=== PATIENT | female | born 1935 | race Caucasian/White ===

== ENCOUNTER 2018-02-11 10:49 | Inpatient (IN) | payer MEDICARE, OTHER ==
[2018-02-11 11:58] LABS: #Basophils 0.1 thou/uL (0.0-0.2); #Eosinphils 0.4 thou/uL (0.0-0.7); #Lymphocytes 1.6 thou/uL (1.20-3.40); #Monocytes 0.8 thou/uL (0.11-0.59); #Neutrophils 5.8 thou/uL (1.40-6.50); %Basophils 1.2 % (0.0-1.0); %Eosinophils 4.2 % (0.0-10.0); %Lymphocytes 18.7 % (21.0-51.0); %Monocytes 8.7 % (0.0-10.0); %Neutrophils 67.1 % (42.0-75.0); Hemoglobin 9.2 g/dL (12.0-16.0); Mean Corpuscular HGB CONC 30.6 g/dL (32.0-36.0); Mean Corpuscular Hemoglobin 29.3 pg (27.0-31.0); Mean Corpuscular Volume 95.8 fl (81.0-99.0); Mean Platelet Volume 8.2 fL (7.4-10.4); Platelet Count 291 thou/uL (130-400); RBC Distribution Width 18.1 % (11.5-14.5); Red Blood Cell (RBC) Count 3.14 mill/uL (4.20-5.40); White Blood Cell (WBC) Count 8.7 thou/uL (4.8-10.8)
[2018-02-11 12:20] LABS: ALT (SGPT) 12 U/L (8-55); AST (SGOT) 15 U/L (5-34); Albumin 2.5 g/dL (3.4-4.8); Alkaline Phosphatase 160 U/L (40-150); Anion Gap 17 mmol/L (10-20); BUN (Urea Nitrogen) 44 mg/dL (9.8-20.1); Bilirubin, Total 0.4 mg/dL (0.2-1.2); Calc. Creatinine Clearance 0 mL/min (70-130); Calcium 7.7 mg/dL (7.8-10.44); Carbon Dioxide 14 mmol/L (23-31); Chloride 110 mmol/L (98-107); Estimated GFR-MDRD 10; Globulin 2.8 g/dL (2.4-3.5); Glucose 81 mg/dL (83-110); Potassium 5.5 mmol/L (3.5-5.1); Protein, Total 5.3 g/dL (6.0-8.3); Sodium 135 mmol/L (136-145)
[2018-02-11 12:29] LABS: Bilirubin Negative (Negative); Blood, Urine Moderate (Negative); Clarity TURBID (Clear); Glucose, Urine (Dipstick) Negative (Negative); Leukocyte Large (Negative); Nitrite Negative (Negative); Protein, Urine (Dipstick) Negative (Neg-Trace); Specific Gravity, Urine 1.015 (1.002-1.036); Urobilinogen 0.2 mg/dL (0.2-1.0)
[2018-02-11 12:35] LABS: Bacteria/HPF 4+ HPF (None Seen); Hyaline Casts/LPF 0-3 HYALINE CAST LPF (0-3 Hyaline); Pathc Cast-AUWi Flag 0.81 (0-2.49); RBC/HPF 0-3 HPF (0-3); Squamous Epithelial 0-3 HPF (0-3)
[2018-02-11] MEDS ORDERED: Acetaminophen 325 MG TAB PO PRN (13:17)
[2018-02-11] MEDS ORDERED: Ondansetron HCl/PF 4 MG/2 ML Vial IVP PRN (13:17)
[2018-02-11] MEDS ORDERED: Zolpidem Tartrate 5 MG TAB PO PRN (13:17)
--- NOTE | 2018-02-11 13:44 | HP ---
PRIMARY CARE PROVIDER: Dr. Muro at [facility]. She is followed at the skilled nursing in [place] by Dr. Sally Hanks. Her political consultant is Dr. Allen. HISTORY OF PRESENT ILLNESS: She was sent from the [facility] by Dr. [facility] after he wa s informed of an elevated potassium level. She states yesterday she got dizzy and passed out. She s tates she has been recently hospitalized at [facility] after having a fall and having apparently a disk problem which caused a profound weakness in the right leg. No pain. She has been in rehab w ith them trying to teach her how to use her right leg since that time. PAST MEDICAL HISTORY: Pertinent for chronic kidney disease, chronic low blood pressure, hypoglycemia , hypothyroidism. She states she takes 25 pills a day, but only 4 of them are prescription and the o nly one that she knows what it is, is a thyroid medicine, but she does not know the dose. I have spo luly with Dr. Allen, her political consultant, who knows her medicine list and will bring it. ALLERGIES: She is allergic to CODEINE. PAST SURGICAL HISTORY: She had a hysterectomy in the past. She had an experimental bariatric surger y 45 years ago that left her with only 18 inches of small bowel. She states the surgery has since be en band. FAMILY HISTORY: No inheritable diseases in mother, father or siblings. SOCIAL HISTORY: 63 years. CODE STATUS: Full code status. States do everything for 3 days and "if at the end of 3 days if she can be fixed turn it off", her words. Does not smoke or drink alcohol. REVIEW OF SYSTEMS: GENERAL: No fever or chills. She states she is up 30 pounds of water weight in the past month. EYES: She has wears glasses, states she has poor vision, no double vision, flashing lights. ENT: No ear pain or drainage. No nasal bleeding. No trouble swallowing. CARDIAC: No chest pain, orthopnea or paroxysmal nocturnal dyspnea. RESPIRATORY: No cough, wheezing or asthma. GASTROINTESTINAL: She has had diarrhea since her bariatric surgery 45 years ago. No blood in her st ools, no nausea, vomiting or abdominal pain. GENITOURINARY: No hematuria, dysuria. MUSCULOSKELETAL: Profound swelling in her legs, worse over the past month. NEUROLOGIC: No strokes, seizures or focal weakness. PSYCHIATRIC: No anxiety, depression. SKIN: Easy bruising. HEME/LYMPH: No tender or swollen lymph nodes in axilla, inguinal or cervical area. PHYSICAL EXAMINATION: VITAL SIGNS: Blood pressure in the emergency room 125/60 and 100/52, pulse 90, respirations 18, temp erature 98, pulse ox 99 on room air. HEENT: Reveal pupils equal, round, and reactive to light. Extraocular movements are intact. Sclera e white. Tympanic membranes clear. Nose is clear. Oral mucous membranes are wet. She is edentulou s. NECK: No jugular venous distention, adenopathy or thyromegaly. CHEST: Clear to auscultation and percussion. HEART: Regular rate and rhythm. First and second heart sounds are clear. There are no appreciated murmurs or gallops. ABDOMEN: The abdomen is soft, bowel sounds are normal. There is no hepatosplenomegaly, no masses, n o rebound. EXTREMITIES: Reveal 3+ edema with no cyanosis or clubbing. PULSES: Carotid, radial, and femoral pulses intact. Pedal pulses obscured by edema. SKIN: Marked erythematous areas. No true ecchymoses and not a true rash. She states they occur wit h any kind of trauma. They are present from neck to toes. HEME/LYMPHATIC SURVEY: No tender or swollen lymph nodes in axilla, inguinal or cervical area. NEUROLOGICAL: Cranial nerves II-XII are intact. Biceps reflexes and strength normal, strength kimmie l in her left lower leg. She has no sensation in the right leg and has maybe 10-15% strength in that leg. LABORATORY: Urinalysis, white blood cells 50 to too many to count, positive leukocyte esterase. Latonya geraldo: Sodium 135, potassium 5.5, chloride 110, CO2 14, BUN 44, creatinine 4.08, glucose 81, calciu m 7.7, albumin 2.5, alkaline phosphatase 160, ALT and AST normal. CBC: Hemoglobin 9.2, white count 8.7, platelet count 291,000. ADMITTING DIAGNOSES: 1. Chronic kidney disease stage 3 with a creatinine of 4 and a BUN of 40 range. I have checked in Luis burnham her creatinine was 5. 2. Hyperkalemia, mild, in a patient who is being given supplemental potassium. 3. Mild metabolic acidosis. 4. Syncope. 5. Hypertension. 6. Anemia of chronic disease. PLAN: 1. Hold Potassium. 2. Lasix [address] 3[address] Allen has been consulted and will see the patient today. 4. EKG. 5. Chest x-ray. 6. Repeat basic metabolic profile in the morning. 7. Urine culture has been sent. The patient will be started on Omnicef 300 mg p.o. b.i.d.
[2018-02-11] MEDS ORDERED: Furosemide 40 MG/4 ML VIAL SLOW IVP SCH (14:00)
--- NOTE | 2018-02-11 15:11 | PDOC.EVN ---
Event Note - Event Note Event Note: weak heart, arrthymia. on 100 mg amiodarone. start digoxin, echo
[2018-02-11] MEDS ORDERED: Digoxin 0.5 MG/2 ML AMP SLOW IVP SCH ×3 (15:15→19:00)
--- NOTE | 2018-02-11 15:46 | ULT ---
BILATERAL RENAL SONOGRAM: Date: 02/11/18 HISTORY: Renal insufficiency. FINDINGS: Right kidney is 8.5 cm in length and shows thinning of the cortex. Exophytic cysts measure up to 2.4 cm greatest diameter. Left kidney is 10.2 cm and also shows thinning of the cortex and multiple cysts, measuring up to 3.4 cm. No hydronephrosis. Urinary bladder is incompletely distended. IMPRESSION: 1. No evidence of urinary tract obstruction. Bilateral renal cysts. 2. Chronic bilateral renal atrophy. POS: [facility]
--- NOTE | 2018-02-11 15:55 | ULT ---
BILATERAL CAROTID DUPLEX ULTRASOUND: DATE: 02/11/18 HISTORY: Syncope. TECHNIQUE: Maki scale ultrasound with color flow and spectral Doppler imaging of the extracranial carotid artery systems performed bilaterally. FINDINGS: No significant plaque formation or intimal wall thickening is seen on either side. The peak systolic velocity in the right ICA measures 103 cm/second with an end-diastolic velocity of 37 cm/second and a systolic ratio of 1.69. The peak systolic velocity in the left ICA measures 91 cm/second with an end-diastolic velocity of 29 cm/second and a systolic ratio of 1.40. Flow in both vertebral arteries remains antegrade. IMPRESSION: No evidence of hemodynamically significant stenosis. POS: [facility]
[2018-02-11] MEDS ORDERED: CEFAZOLIN/Water 2 GM/20 ML SYRINGE SLOW IVP SCH (16:00)
[2018-02-11 16:10] LABS: Free T4 (Free Thyroxine) 0.88 ng/dL (0.70-1.48)
--- NOTE | 2018-02-11 17:00 | OP ---
PREOPERATIVE DIAGNOSIS: Poor IV access, end-stage renal disease, morbid obesity. POSTOPERATIVE DIAGNOSIS: Poor IV access, end-stage renal disease, morbid obesity. PROCEDURE PERFORMED: Right femoral vein triple lumen catheter. SURGEON: Dr. Lowe. ANESTHESIA: 1% Xylocaine. DESCRIPTION OF PROCEDURE: At the patient's bedside in room, right groin was prepared with ChloraPrep , draped in routine fashion. Local anesthetic infiltrated into skin and subcutaneous tissue. Trocar catheter cannulated the femoral vein with some difficulty and J-wire threaded. Trocar catheter rosaura gerald. Seldinger technique used to place a triple lumen catheter placing the Biopatch, securing the ca theter with 3-0 silk and each port aspirated blood and flushed with saline solution. Op-Site dressin g applied. Right arm IV removed.
--- NOTE | 2018-02-11 17:02 | RAD ---
CHEST ONE VIEW: 02/11/18 HISTORY: Hyperkalemia. Dyspnea. FINDINGS: Cardiac silhouette is magnified. Pulmonary vasculature is upper limits of normal. Mediastinum is midl ine with aortic calcification. There is blunting of the left lateral costophrenic angle. Old right ri b fractures are apparent. No evidence of pneumothorax. IMPRESSION: 1. Mild pulmonary vascular congestion. Small left pleural effusion. 2. Atherosclerosis. POS: [facility]
--- NOTE | 2018-02-11 17:41 | CON ---
DATE OF CONSULTATION: 02/11/2018 HISTORY OF PRESENT ILLNESS: Mary Damon is an 82-year-old female with chronic kidney disease. She ames s been seen by Dr. Allen who has sent her to the hospital for medical evaluation and to initiate dialy sis. He has asked me to see her regarding placement of hemodialysis catheter. Her GFR is 10, creati nine 4, BUN 44, potassium 5.5. Patient states that she was at [facility] for pain in her hip. She had edema. She had difficult IV access. They tried a left IJ catheter. It sounds and was unsuccessful. They tried multiple IV sticks throughout in both arms. She ended up having a PICC line in her left arm. The patient reports today to the emergency room and has had mul tiple IV access in her antecubital area above and below, right more than left. She has an IV in her midforearm. I have removed that immediately. The patient has fragile skin. She has had progressive renal failure probably secondary to intestinal bypass 45 years ago. ALLERGIES: CODEINE. TOBACCO: None. ALCOHOL: None. MEDICATIONS AT HOME: Furosemide 20 mg a day, ferrous sulfate 325 daily, vitamin B12 daily, potassium chloride 20 daily, vitamin D3 daily, Zyrtec daily, calcium, antacid 1000 mg b.i.d., amiodarone 100 m g daily, acetaminophen as needed, aspirin 81 mg a day, thiamine 100 mg daily, midodrine 2.5 mg b.i.d. , omeprazole 40 mg daily, magnesium oxide 400 mg daily, Florinef t.i.d. one tab, levothyroxine 125 mc g a day, gabapentin 300 mg a day, loperamide 200 mg p.o. q.i.d. p.r.n., albuterol sulfate p.r.n., sod ium bicarbonate 650 p.o. b.i.d. PAST SURGICAL HISTORY: Laparotomy 45 years ago with intestinal bypass and cholecystectomy. She had a 150-pound weight loss as a result of that. Transvaginal hysterectomy. SOCIAL HISTORY: Patient lives in a penitentiary in [place]. Her family is present. Family tells me that previously at [facility], she stated that she wanted to be in a D NR except wanted to be kept alive for 7 days. Today, she has told Dr. Bartlett she wants to be kept ali ve for 3 days. Previously, the family has discussed with her and she agreed to DNR in the past. PAST MEDICAL HISTORY: Chronic kidney disease, history of intestinal bypass with resultant chronic ki dney disease, intestinal bypass. Patient historically has long-term problems with chronic kidney dis ease, end-stage renal disease, chronic liver failure and hypothyroidism. PHYSICAL EXAMINATION: VITAL SIGNS: 102 kilograms, 125/60, 94, 18, 98 degrees. HEAD, EARS, EYES, NOSE, AND THROAT: Unremarkable. LUNGS: Clear to auscultation. CARDIAC: Regular rate and rhythm without murmur or gallop. ABDOMEN: Soft, obese. Scar per above surgical history of intestinal bypass and cholecystectomy. EXTREMITIES: Unremarkable. She has palpable radial pulses in right mid forearm IV. Ecchymosis abov e antecubital areas, right greater than left. LABORATORY DATA: As noted above, bilirubin 0.4. AST and ALT are 15 and 12, alkaline phosphatase 160 . Hemoglobin 9.2, white count 8.7. ASSESSMENT AND PLAN: 1. Chronic renal failure, probably as a result of her past intestinal bypass. These intestinal bypa ss patients performed to this degree 45 years ago have problems with chronic kidney disease, end-stag e renal disease and liver failure. The patient's liver function test appeared to be normal. Dr. Renzo vincent has asked me to place hemodialysis catheter and an arm fistula. We will obtain ultrasound vein map ping in both arms to protect her arm veins. She has already had left arm PICC line at [facility] [place]. I told them to avoid all IVs antecubital area and avoid PICC lines an d avoid . We will plan Friday left or right arm primary fistula, pinning vein mapping and hemod ialysis catheter. We will place a central line to protect her veins and provide IV access and blood draws. 2. History of intestinal bypass. 3. History of cholecystectomy. 4. History transvaginal hysterectomy. 5. Obesity. 5. Nonambulatory for 6 months.
--- NOTE | 2018-02-11 17:43 | CON ---
DATE OF CONSULTATION: 02/11/2018 NEPHROLOGY CONSULTATION REASON FOR CONSULTATION: Hyperkalemia. HISTORY OF PRESENT ILLNESS: This is a very pleasant 82-year-old female with a history of CKD stage 5 who presented to the hospital after she was noted to have hyperkalemia. PAST MEDICAL HISTORY: Hypertension, hyperlipidemia, congestive heart failure with EF of 50%, anemia, arthritis, cellulitis of the left lower limb, hypothyroidism, neuropathy, osteoarthritis, paroxysmal atrial fibrillation, restless legs syndrome, short gut syndrome, UTI, history of cholecystectomy, eye surgery, hysterectomy, intestinal bypass, HD catheter. HOME MEDICATIONS: List reviewed, which included potassium chloride, amiodarone 100 mg daily, aspirin 81 mg daily, vitamin D, vitamin B12, Lasix 20 mg daily, gabapentin 300 mg daily, isosorbide mononitrate 300 mg daily, Synthroid 125 mcg , metoprolol tartrate 25 mg b.i.d., Prilosec 20 mg daily and thiamine. ALLERGIES: Reviewed. AMITRIPTYLINE, AMOXICILLIN, KEFLEX, MORPHINE, and TRAMADOL. FAMILY HISTORY: Negative for ESRD. SOCIAL HISTORY: No alcohol or drug use. REVIEW OF SYSTEMS: A 10 point review of systems was performed and was negative except for positives noted above. GENERAL: Weakness- HEAD: Headache- NECK: No swelling or lumps. NOSE: No epistaxis or discharge. EYES: No diplopia or pain. RESPIRATORY: Dyspnea- CARDIOVASCULAR: Chest pain- GASTROINTESTINAL: Nausea- /HOTEL OPERATIONS MANAGER: Hematuria- MUSCULOSKELETAL: No joint pain. NEUROPSYCHIATIC SYSTEMS: No suicidal ideation. No ideation. SKIN: Denies any rash or ulcer. CONSTITUTIONAL: No fever or chills. PHYSICAL EXAMINATION: GENERAL: Patient is awake, alert. VITAL SIGNS: Afebrile breathing at 16, blood pressure 137/81. HEAD: Headache- NECK: No swelling or lumps. NOSE: No epistaxis or discharge. EYES: No diplopia or pain. RESPIRATORY: Dyspnea- CARDIOVASCULAR: Chest pain- GASTROINTESTINAL: Nausea- /HOTEL OPERATIONS MANAGER: Hematuria- MUSCULOSKELETAL: No joint pain. NEUROPSYCHIATIC SYSTEMS: No suicidal ideation. No ideation. SKIN: Denies any rash or ulcer. CONSTITUTIONAL: No fever or chills. EXTREMITIES: Lower extremities have 3+ edema. LABORATORY DATA: Show potassium 5.5, bicarbonate 14. ASSESSMENT AND RECOMMENDATIONS: 1. Acute kidney injury with chronic kidney disease and progressive rise in creatinine, multifactorial. 2. Hyperkalemia We will give Kayexalate and give Lasix. If does not help, we will consider renal replacement therapy. Creatinine has increased from 3-4 today. I will consult Vascular Surgery for AV fistula. 3. Anemia stable. 4. HTN stable. 5. CHF continue lAsix. MTDD
[2018-02-11] MEDS: Cefdinir 300 MG CAP PO SCH (20:17)
[2018-02-11] MEDS: Lactinex Tablet PO SCH (20:17)
[2018-02-11] MEDS: Sodium Bicarbonate Tab 325 MG TAB PO SCH (20:17)
[2018-02-11 20:23] VITALS: BMI 31.2
--- NOTE | 2018-02-11 20:57 | ULT ---
BILATERAL UPPER EXTREMITY VENOUS DUPLEX EXAM: 02/11/18 Cephalic and basilic veins of both upper extremities are evaluated with ultrasound and color doppler with spectral analysis compression studies. INDICATIONS: Assess for dialysis fistula. End-stage renal disease. Assessment for possible fistula placement. Veins were evaluated and diameter was measured at different segments. RIGHT CEPHALIC VEIN: Axilla: 1.3 Proximal humerus: 1.3 Mid humerus: 1.0 Distal humerus: 1.0 Elbow: 0.8 Mid forearm: 1.9 RIGHT BASILIC VEIN: Axilla: 5.1 Proximal humerus: 1.6 Mid humerus: 1.3 Distal humerus: 0.9 Elbow: 1.1 Mid forearm: 0.9 RIGHT BRACHIAL ARTERY: 3.4 RIGHT RADIAL ARTERY: 1.5 RIGHT ULNAR ARTERY: 1.0 LEFT CEPHALIC: Axilla: 1.4 Proximal humerus: 1.2 Mid humerus: 1.3 Distal humerus: 1.8 Elbow: 1.2 Mid forearm: 1.0 LEFT BASILIC VEIN: Axilla: 3.4 Proximal humerus: 1.8 Mid humerus: 1.5 Distal humerus: 2.1 Elbow: 0.5 Mid forearm: 0.4 LEFT BRACHIAL ARTERY: 3.3 LEFT RADIAL ARTERY: 1.0 LEFT ULNAR ARTERY: 0.9 POS: [facility]
[2018-02-12 04:53] LABS: Anion Gap 12 mmol/L (10-20); BUN (Urea Nitrogen) 47 mg/dL (9.8-20.1); Calc. Creatinine Clearance 14 mL/min (70-130); Calcium 7.2 mg/dL (7.8-10.44); Carbon Dioxide 19 mmol/L (23-31); Chloride 111 mmol/L (98-107); Estimated GFR-MDRD 10; Glucose 78 mg/dL (83-110); Potassium 5.4 mmol/L (3.5-5.1); Sodium 137 mmol/L (136-145)
--- NOTE | 2018-02-12 08:50 | PDOC.PN ---
- Subjective Encounter Start Date: 02/12/18 Encounter Start Time: 08:48 Subjective: good diuresis per patient - Objective MAR Reviewed: Yes Vital Signs & Weight: Vital Signs (12 hours) Temp Pulse Resp BP Pulse Ox 02/12/18 05:10 97.6 F 97 18 125/59 L 97 02/12/18 00:15 97.5 F L 94 20 126/79 94 L 02/12/18 00:00 97.5 F L 94 20 126/79 94 L Weight Weight 6.829 oz I&O: 02/11/18 02/12/18 02/13/18 06:59 06:59 06:59 Intake Total 360 Balance 360 Result Diagrams: 02/11/18 11:50 02/12/18 04:05 Phys Exam - Physical Examination Constitutional: NAD Neck: no JVD Respiratory: clear to auscultation bilateral Cardiovascular: no significant murmur, irregular Gastrointestinal: soft, positive bowel sounds Musculoskeletal: edema present Dx/Plan (1) Atrial fibrillation with rapid ventricular response Code(s): I48.91 - UNSPECIFIED ATRIAL FIBRILLATION Status: Acute (2) CKD (chronic kidney disease) stage 4, GFR 15-29 ml/min Code(s): N18.4 - CHRONIC KIDNEY DISEASE, STAGE 4 (SEVERE) Status: Chronic (3) Hyperkalemia Code(s): E87.5 - HYPERKALEMIA Status: Acute (4) Acidosis, metabolic Code(s): E87.2 - ACIDOSIS Status: Acute (5) Edema Code(s): R60.9 - EDEMA, UNSPECIFIED Status: Acute - Plan cont iv lasix daily -: await echo -: cont po digoxin, amiodarone -: check dig level-02/13 -: discuss with renal * .
[2018-02-12] MEDS: Levothyroxine Sodium 125 MCG TAB PO SCH (08:52)
[2018-02-12] MEDS: Amiodarone 200 MG TAB PO SCH (08:52)
[2018-02-12] MEDS: Lactinex Tablet PO SCH ×3 (08:52→21:36)
[2018-02-12] MEDS: Cefdinir 300 MG CAP PO SCH ×2 (08:52→21:36)
[2018-02-12] MEDS: Sodium Bicarbonate Tab 325 MG TAB PO SCH ×2 (08:54→21:36)
[2018-02-12] MEDS ORDERED: Epoetin (ESRD) 10,000 UNITS/ML VIAL SC SCH (09:00)
[2018-02-12] MEDS ORDERED: Furosemide 40 MG/4 ML VIAL SLOW IVP SCH (09:00)
[2018-02-12] MEDS ORDERED: Digoxin 0.125 MG TAB PO SCH (09:00)
--- NOTE | 2018-02-12 10:05 | PRG ---
DATE OF SERVICE: 02/12/2018 SUBJECTIVE: This 82-year-old female being seen for stage 5 chronic kidney disease. The patient akshat ins hyperkalemic. Denies any nausea or vomiting, but has generalized swelling. PHYSICAL EXAMINATION: GENERAL: Patient is awake, alert. VITAL SIGNS: Afebrile, pulse 97, breathing 16, blood pressure 125/59. OBJECTIVE: See above. Awake, alert, in no acute distress. GENERAL APPEARANCE AND MENTAL STATUS: Fair. HEAD/NECK: Normocephalic. Atraumatic. EYES: EOMI. No deformity. EARS: Clear. No ulcers. NOSE: Intact. No lesions. MOUTH: Clear. No discharge. THROAT: Clear. No exudate. LUNGS: Clear. No crackles. CARDIAC: S1, S2. No rub. ABDOMEN: Benign. BS+. GENITALIA/RECTUM: Alcazar absent. BACK/EXTREMITIES: Edema 4+ Ulcer- NEUROLOGICAL: Alert and motor intact. SKIN: Rash- Bruise- LYMPHATICS: Edema- Ulcer- LABORATORY: Potassium 5.4, creatinine 4.11, bicarbonate 90. ASSESSMENT AND RECOMMENDATIONS: 1. Acute kidney injury with chronic kidney disease due to progressive chronic kidney disease. 2. Hyperkalemia. We will give Kayexalate. 3. Metabolic acidosis. Continue sodium bicarbonate. We will recheck a stat potassium. 4. Congestive heart failure and edema. Increase Lasix to b.i.d. Check labs again later today. We will plan renal replacement therapy.
[2018-02-12 15:24] LABS: Anion Gap 12 mmol/L (10-20); BUN (Urea Nitrogen) 47 mg/dL (9.8-20.1); Calc. Creatinine Clearance 0 mL/min (70-130); Calcium 7.1 mg/dL (7.8-10.44); Carbon Dioxide 19 mmol/L (23-31); Chloride 112 mmol/L (98-107); Estimated GFR-MDRD 10; Glucose 91 mg/dL (83-110); Sodium 138 mmol/L (136-145)
[2018-02-12] MEDS: Furosemide 40 MG/4 ML VIAL SLOW IVP SCH (16:39)
[2018-02-13] MEDS: Furosemide 40 MG/4 ML VIAL SLOW IVP SCH (06:37)
--- NOTE | 2018-02-13 08:39 | PDOC.PN ---
- Subjective Encounter Start Date: 02/13/18 Encounter Start Time: 08:38 Subjective: no complaints, ok - Objective MAR Reviewed: Yes Vital Signs & Weight: Vital Signs (12 hours) Temp Pulse Resp BP Pulse Ox 02/13/18 07:03 97.5 F L 85 16 110/61 98 02/13/18 03:45 97.4 F L 90 16 111/56 L 100 Weight Weight 187 lb 3.2 oz I&O: 02/12/18 02/13/18 02/14/18 06:59 06:59 06:59 Intake Total 360 274 Balance 360 274 Result Diagrams: 02/11/18 11:50 02/12/18 14:55 Additional Labs: Accuchecks 02/12/18 11:19 POC Glucose 99 Phys Exam - Physical Examination Neck: no JVD Respiratory: clear to auscultation bilateral Cardiovascular: RRR, no significant murmur Gastrointestinal: soft, positive bowel sounds Musculoskeletal: edema present Dx/Plan (1) Atrial fibrillation with rapid ventricular response Code(s): I48.91 - UNSPECIFIED ATRIAL FIBRILLATION Status: Acute (2) CKD (chronic kidney disease) stage 4, GFR 15-29 ml/min Code(s): N18.4 - CHRONIC KIDNEY DISEASE, STAGE 4 (SEVERE) Status: Chronic (3) Hyperkalemia Code(s): E87.5 - HYPERKALEMIA Status: Acute (4) Acidosis, metabolic Code(s): E87.2 - ACIDOSIS Status: Acute (5) Edema Code(s): R60.9 - EDEMA, UNSPECIFIED Status: Acute - Plan stat bmp * .
[2018-02-13] MEDS ORDERED: Digoxin 0.125 MG TAB PO SCH (09:00)
[2018-02-13 09:11] LABS: Anion Gap 13 mmol/L (10-20); BUN (Urea Nitrogen) 46 mg/dL (9.8-20.1); Calc. Creatinine Clearance 13 mL/min (70-130); Calcium 6.9 mg/dL (7.8-10.44); Carbon Dioxide 21 mmol/L (23-31); Chloride 110 mmol/L (98-107); Estimated GFR-MDRD 10; Glucose 80 mg/dL (83-110); Potassium 3.5 mmol/L (3.5-5.1); Sodium 140 mmol/L (136-145)
[2018-02-13] MEDS: Amiodarone 200 MG TAB PO SCH (09:46)
[2018-02-13] MEDS: Sodium Bicarbonate Tab 325 MG TAB PO SCH (09:47)
[2018-02-13] MEDS: Cefdinir 300 MG CAP PO SCH (09:48)
[2018-02-13] MEDS: Lactinex Tablet PO SCH ×2 (09:48→14:07)
[2018-02-13] MEDS: Levothyroxine Sodium 125 MCG TAB PO SCH (09:48)
--- NOTE | 2018-02-13 10:40 | PRG ---
DATE OF SERVICE: 02/13/2018 SUBJECTIVE: This 82-year-old female being seen for stage 5 chronic kidney disease and congestive hea rt failure. The patient denies any nausea, vomiting or chest pain. PHYSICAL EXAMINATION: GENERAL: Patient is awake, alert. VITAL SIGNS: Afebrile, pulse 85, breathing 16, blood pressure 110/61. GENERAL APPEARANCE AND MENTAL STATUS: Fair. HEAD/NECK: Normocephalic. Atraumatic. EYES: EOMI. No deformity. EARS: Clear. No ulcers. NOSE: Intact. No lesions. MOUTH: Clear. No discharge. THROAT: Clear. No exudate. LUNGS: Clear. No crackles. CARDIAC: S1, S2. No rub. ABDOMEN: Benign. BS+. GENITALIA/RECTUM: Alcazar absent. BACK/EXTREMITIES: Edema 3+ Ulcer- NEUROLOGICAL: Alert and motor intact. SKIN: Rash- Bruise- LYMPHATICS: Edema- Ulcer- LABORATORY DATA: Potassium 3.5, creatinine 4.26. ASSESSMENT AND RECOMMENDATIONS: 1. Acute kidney injury with progressive chronic kidney disease stage 5. We will continue diuresis. Access has been planned. 2. Hyperkalemia, improved. 3. Metabolic acidosis, improved. 4. Congestive heart failure. Change the Lasix to p.o. 80 mg b.i.d. 5. Anemia, stable. Continue Epogen. 6. Hypertension, stable.
--- NOTE | 2018-02-13 11:17 | DIS ---
TRANSFER OF CARE NOTE PRIMARY CARE PROVIDER: Dr. Cuong Muro AUTOMOBILE WRECKER: Dr. Allen. Followed at the [facility] by Dr. Sally Hanks. DATE OF ADMISSION: 02/11/2018 DATE OF DISCHARGE: 02/13/2018 DISPOSITION: Discharged back to [facility]. FINAL DIAGNOSES: 1. Chronic kidney disease stage 5. 2. Hyperkalemia. 3. Metabolic acidosis. 4. Atrial fibrillation with rapid ventricular response. DISCHARGE MEDICATIONS: Lasix 40 mg a day, amiodarone 100 mg a day, levofloxacin 500 mg p.o. every ot her day for 1 week, aspirin 81 mg a day, thiamine 100 mg a day, midodrine 2.5 mg twice a day, omepraz ole 40 mg a day, mag oxide 400 mg a day, lactobacillus 1 tablet 3 times a day, levothyroxine 125 mcg a day, gabapentin 300 mg a day, sodium bicarbonate 650 mg p.o. b.i.d. ALLERGIES: CODEINE. PENDING AT THE TIME OF DISCHARGE: Nothing. CODE STATUS: Full. HOSPITAL COURSE: The patient referred to the [facility] by Dr. [facility]. She had been no dina to have elevated potassium at the [facility]. She was on potassium replacement therapy for her Lasix. Her initial potassium here was 5.5, follow up was 5.4, follow up 5.0, follow up 3.5. Initia l CO2 14, follow up 19, 19, 21. Creatinine 4.08, 4.11, 4.19, 4.26. Chest x-ray showed a mild blunti ng of the left costophrenic angle, otherwise clear. The patient's potassium was stopped. Her Lasix has been increased from 20 to 40 mg a day because of her edema. She has no need for emergent dialysi s. She has been evaluated by Dr. Carrington Lowe. Currently she is doing well. Chest is clear. Elan rt has an irregular rate and rhythm controlled on the addition of digoxin. On the day she was admitt ed she had an elevated rate. She was given digoxin IV loading dose and then continued on 0.125 mcg a day. Follow up will be per Dr. Sally Hanks, Dr. Muro, Dr. Allen. She will probably eventually need dial ysis; however, there is no reason for emergent dialysis at this time. She will probably need mapping and placement of an AV fistula. This can be done as an outpatient.
[2018-02-13 12:26] VITALS: BP 112/52; TEMP 97.3
[2018-02-13] MEDS ORDERED: Furosemide 80 MG TAB PO SCH (14:00)
--- NOTE | 2018-02-17 20:08 | EKG ---
Test Reason : Blood Pressure : / mmHG Vent. Rate : 105 BPM Atrial Rate : 125 BPM P-R Int : 000 ms QRS Dur : 082 ms QT Int : 300 ms P-R-T Axes : 000 -60 -68 degrees QTc Int : 396 ms Atrial fibrillation with rapid ventricular response Left axis deviation Low voltage QRS Nonspecific T wave abnormality , probably digitalis effect Abnormal ECG When compared with ECG of 23-DEC-2014 15:45, Atrial fibrillation has replaced Sinus rhythm RSR' pattern in V1 is no longer Present Confirmed by KRISTINE ANN (2) on 02/17/2018 8:08:48 PM Referred By: DELORIS Confirmed By:KRISTINE ANN
--- NOTE | 2018-02-25 00:50 | PQF ---
SHAISTA STAFFORD, [facility] [id number] CLINICAL DOCUMENTATION CLARIFICATION FORM: POST DISCHARGE Addendum to original discharge summary date: ____ Late entry note date: __ DATE: 02/25/18 ATTN: Dr. Bartlett Please exercise your independent, professional judgment in responding to the clarification form. Clinical indicators are provided on the bottom of this form for your review Please check appropriate box(s): HEART FAILURE: A. TYPE: [ ] Systolic / HFrEF [ ] Diastolic / HFpEF [ ] Combined Systolic / Diastolic B. ACUITY [ ] Acute [ ] Acute on Chronic [ ] Chronic [ ] Other diagnosis [ x] Unable to determine In addition, please specify: Present on Admission (POA): [ ] Yes [ ] No [ ] Unable to determine For continuity of documentation, please document condition throughout progress notes and discharge summary. Thank You. CLINICAL INDICATORS - SIGNS / SYMPTOMS / LABS: Peripheral edema RISKS: CKD Hypertension TREATMENTS: IV diuretics in ER and home meds doubled MTDD
--- NOTE | 2018-03-07 20:41 | EKG ---
Test Reason : Blood Pressure : / mmHG Vent. Rate : 095 BPM Atrial Rate : 063 BPM P-R Int : 000 ms QRS Dur : 078 ms QT Int : 308 ms P-R-T Axes : 000 -30 -55 degrees QTc Int : 387 ms Atrial fibrillation Left axis deviation Low voltage QRS Nonspecific ST and T wave abnormality Abnormal ECG Confirmed by IDCK HEATH ([id number]), associate editor LEVI METZ ([id number]) on 03/07/2018 8:40:56 PM Referred By: Confirmed By:DICK HEATH
== END 2018-02-13 15:34 | DRG 641 ==
LOC: ERS 10:49 → 2NO 13:22 → OBSVTOIN 15:26
PROVIDERS: ADMIT Internal Medicine; ATTEND Internal Medicine
PROC: 02HV33Z Insertion of Infusion Device into Superior Vena Cava, Percutaneous Approach (ICD-10-PCS; principal; 2018-02-11)
DX: E87.5 Hyperkalemia (principal); I13.2 Hypertensive heart and chronic kidney disease with heart failure and with stage 5 chronic kidney disease, or end stage renal disease; E87.2 Acidosis; N18.5 Chronic kidney disease, stage 5; I48.91 Unspecified atrial fibrillation; E66.01 Morbid (severe) obesity due to excess calories; D64.9 Anemia, unspecified; R55 Syncope and collapse; E03.9 Hypothyroidism, unspecified; I50.9 Heart failure, unspecified; E78.5 Hyperlipidemia, unspecified; M19.90 Unspecified osteoarthritis, unspecified site
CPT/HCPCS: 36415; 36416; 51701; 71045; 76770; 80048; 80053; 81003; 81015; 84439; 84481; 85025; 87077; 87086; 87186; 93005; 93010; 93306; 93880; 93970; A4216; A4353; G0365; G8978-GP-CL; G8979-GP-CK; G8987-GO-CL; G8988-GO-CI; G8988-GO-CK; J0696; J1160; J1940; Q4081